=== PATIENT | male | born 1985 | race Caucasian/White ===

== ENCOUNTER 2017-12-25 08:12 | Emergency (ER) | payer BC, SELFPAY ==
[2017-12-25 08:14] VITALS: BP 153/86; PULSE 82; RESP 14; TEMP 35.7; BMI 37.8
--- NOTE | 2017-12-25 08:50 | ED.DCSUM_ITS ---
- ER Visit Summary Date of Service: 12/25/17 Chief Complaint: [Abscess] History of Present Illness: The patient is a 32 M [presents the emergency department complaint of an abscess to the neck. Patient states that he has had what he thinks is a sebaceous cyst to the right side of his neck for approximately for 5 years but has not been causing him too much trouble. A month ago or so patient developed swelling to the left side of his neck which became painful. Patient was seen and started on Keflex. Patient scheduled to see a surgeon and have the sebaceous cyst excised on the of the month. Patient noticed some drainage from the area this morning and they were told that if it started to drain that they would need to be evaluated immediately in emergency department. Patient denies any fevers.] Physical Examination: [HEENT-PERRLA, EOMI. Cranial nerves II through XII grossly intact. TMs clear. Mucous membranes moist. No adenopathy. Evaluation of the neck does reveal at the base of this skull a soft tissue fluctuant mass. Area slightly erythematous. Area tender to palpation. Do not appreciate an obvious drainage at this time. Cardiovascular-regular rate and rhythm without murmur or ectopy Lungs-clear to auscultation, chest wall stable without crepitus or subcu emphysema Abdomen-normoactive bowel sounds, soft, nontender, no rebound or rigidity, no peritoneal signs. Extremities-intact ?4, normal range of motion, normal pulses, atraumatic] Test Results: [None indicated] Emergency Department Course and Treatment: [She was offered incision and drainage which she agreed to. Area of the neck was sterilely draped and prepped. Wound was cleansed with Shur-Clens. Area was anesthetized with 1% lidocaine locally total of 2 cc. Using an 11 blade a 2 cm incision was made into the fluctuant portion of the suspected abscess. Large amount of free- flowing purulent debris was expressed. Using curved hemostats to undermine the soft tissues. Area was irrigated. Clean dressing was applied.] Treatment Plan: [Patient to continue with his antibiotics until they are finished. Patient to follow-up with his surgeon.] Disposition: [Discharged home in stable condition] Impression: [Soft tissue abscess to neck with incision and drainage] This note was generated with [employer] software. It may contain incorrect words, spelling, and punctuation that were not noted in review of the chart prior to signing ED Disposition - Plan for ED Patient: Chief Complaint: Abscess Referrals: Care Physician,No Primary [Primary Care Provider] -
--- NOTE | 2017-12-25 08:50 | ED.DEP ---
ED Disposition - Plan for ED Patient: Chief Complaint: Abscess Instructions: ED Abscess IandD Prescriptions: Hydrocodone Bitart/Apap 5-325 [[place] 5MG-325MG] 1 tab PO Q4H PRN PRN 2 Days #10 tab PRN Reason: Pain Referrals: Care Physician,No Primary [Primary Care Provider] - Additional Instructions: see your surgeon
[2017-12-25] MEDS: HYDROcodone Bitartrate/Apap 5/325 Tablet PO (08:56)
== END 2017-12-25 09:09 | disposition home or self-care (01) ==
LOC: ED 08:34
PROVIDERS: Emergency Provider Emergency Medicine
DX: L02.11 Cutaneous abscess of neck (principal); E11.9 Type 2 diabetes mellitus without complications; Z79.2 Long term (current) use of antibiotics; Z79.4 Long term (current) use of insulin
CPT/HCPCS: 10060; 99283

== ENCOUNTER 2020-12-18 16:11 | Emergency (ER) | payer SELFPAY ==
[2020-12-18 16:13] VITALS: BP 101/80; PULSE 102; RESP 16; TEMP 36.5; O2SAT 98; BMI 38.8
--- NOTE | 2020-12-18 16:44 | EDS_ITS ---
HPI HPI - GI History of Present Illness Chief Complaint: Abd Pain Informant: patient Abdominal Pain/Flank Pain Onset: Yesterday Context: Gradual Onset Timing: Continuous Quality: Aching and Cramping Location: Diffuse Current Severity: Severe Maximum Severity: Severe Worsened by: - (Vomiting) Relieved by: - (Dilaudid) Nausea/Vomiting/Emesis GI Symptom: Positive for Nausea and Vomiting Quality: Positive for Nonbilious; Negative for Blood streaks and Hematemesis Severity: Severe Diarrhea/Melena/Hematochezia GI Symptom: Positive for Diarrhea; Negative for Melena and Hematochezia Onset: Yesterday Stool Quality: Positive for Watery; Negative for Black, Maroon and BRB per rectum Severity: Severe Associated Symptoms Associated Symptoms: Negative for Dysuria, Frequency, Hematuria and Urgency Narrative Narrative: Patient states he is having abdominal pain, vomiting, diarrhea since yesterday. He states that nausea started a couple days ago, diarrhea then after that, then vomiting with abdominal pain. He denies any known fevers. He is an insulin-dependent diabetic. He states his blood sugars have been around 300 yesterday, and he has still been giving himself small amount of insulin to prevent himself from going into DKA. His girlfriend did a rapid Covid test at home prior to going to [facility] which is where he just came from after having a bunch of negative tests and he eloped after they gave him Dilaudid, which gave him hives and they told him there is nothing else we can do for you, according to the patient. He has not had the Covid vaccine and states and I do not want it. [facility] Medical History Type 1 diabetes mellitus Home Medications insulin lispro 100 unit/mL subcutaneous solution See Rx Instructions SC TID ml 12/31/17 [History Last Taken Unknown] insulin glargine [Lantus U-100 Insulin] 40 unit SUBCUT QHS 12/18/20 [History Last Taken Unknown] metoclopramide HCl 10 mg PO Q6H PRN #20 tab 12/18/20 [Rx Last Taken Unknown] Allergy/AdvReac Type Severity Reaction Status Date / Time cashew nut Allergy Anaphylaxis Verified 12/18/20 16:19 hydromorphone [From Dilaudid] Allergy Hives Verified 12/18/20 16:19 Family History (System 12/07/20 @ 11:05 by Evita Lopez) Unknown Diabetes Surgical History h/o removal of cyst from scalp H/O removal of neck cyst Social History Smoking Status: Never smoker second hand exposure: No alcohol intake: never substance use type: does not use ROS ROS ED Constitutional Constitutional ED: Reports body ache(s) and fatigue; Denies chills or fever(s) Eyes Eyes: Denies change in vision or diplopia ENT ENT ED: Denies rhinorrhea or sore throat Cardiovascular Cardiovascular: Denies chest pain or palpitations Respiratory/Chest Respiratory/Chest: Denies cough or dyspnea Gastrointestinal Gastrointestinal: Reports abdominal pain, diarrhea, nausea and vomiting Genitourinary Genitourinary ED: Denies dysuria or hematuria Musculoskeletal Musculoskeletal: Denies back pain or neck pain Integumentary Denies abscess or rash Neurologic Neurologic: Denies headache(s), paresthesias or weakness Psychiatric Psychiatric: Denies anxiety or suicidal thoughts EXAM Physical Exam Const Vital Signs: 12/18/20 16:13 12/18/20 19:51 Temperature 97.7 F L Temperature Source Temporal Pulse Rate 102 H 110 H Respiratory Rate 16 12 Blood Pressure 101/80 118/71 Blood Pressure Mean 87 86 Pulse Ox 98 97 Oxygen Delivery Method Room Air Room Air Positive well nourished and well developed General Appearance ED: well developed and NAD HEENT Reports moist mucous membranes normocephalic and atraumatic Eyes PERRL and EOMs intact bilaterally Neck full ROM and supple Resp normal respiratory effort and clear to auscultation bilaterally Cardio regular rate, regular rhythm and no murmurs GI non-distended GI Narrative: Diffusely tender, worse in the right side of the abdomen and epigastrium Auscultation: normoactive bowel sounds Palpation: soft Back/Spine no CVA tenderness General Back: other FROM Extremity normal to inspection General Extremety ED: Negative for edema, pulses abnormal or tenderness General Extremity: Negative for edema or pulses abnormal Neuro oriented x3, CN's II-XII intact bilaterally and no sensory deficits noted Sensorium / Orientation: awake and alert Motor Exam: strength 5/5 throughout Psych speech normal Mood & Affect: anxious Skin no rashes or lesions noted and no wounds MDM MDM MDM Narrative Medical decision making narrative: Patient was just at a different hospital and had a lot of tests including a CT. Therefore, I offered a repeat rapid Covid antigen test which he is declining, and ordered IV fluids and medications to try to help him feel better before repeating a lot of testing that is unnecessary to do, while awaiting test results to be faxed from the outside hospital. I was able to get some records, normal labs except for a white blood count of of 12.7 slight leftward shift, so they did a CT of the abdomen/pelvis, it was normal except for gastric distention. Troponin was within normal limits as well. Lipase was within normal limits. Here, I treated patient's rash with IV Benadryl which helped, in addition to IM dicyclomine, IV normal saline, and Reglan. On reevaluation he feels much better. He has prescriptions for Zofran and Bentyl already that he has not been able to fill yet that were written by the prior ER, I will also add a prescription for Reglan which seemed to really help. Just in case. He is comfortable with that plan and will follow up with his doctor. Discharge Plan Triage Chief Complaint: Abd Pain ED Provider: Joni Islas Dx/Rx/DC Orders Clinical Impression: Abdominal pain, diffuse, Gastroenteritis Instructions: Abdominal Pain Prescriptions: New metoclopramide HCl [metoclopramide HCl] 10 MG tablet 10 mg PO Q6H PRN (Reason: nausea and vomiting) Qty: 20 RF: 0 No Action insulin lispro [Humalog U-100 Insulin] 100 unit/mL solution See Rx Instructions SC TID RF: 0 Lantus U-100 Insulin 100 unit/mL solution 40 unit SUBCUT QHS RF: 0 Primary Care Provider: Dalia Barraza Referrals: Dalia Barraza MD [Primary Care Provider] - 3-5 Days if not improving Disposition Disposition: Home, Self Care
[2020-12-18] MEDS: 0.9% Normal Saline 1,000 ML 999 ML IV (16:55)
[2020-12-18] MEDS: Metoclopramide 10 MG/2 ML Vial IV (16:56)
[2020-12-18] MEDS: DiphenhydrAMINE 50 MG/ML Syringe 25 MG IV (16:58)
[2020-12-18] MEDS: Dicyclomine 20 MG/2 ML Vial IM (17:00)
[2020-12-18 19:51] VITALS: BP 118/71; PULSE 110; RESP 12; O2SAT 97
== END 2020-12-18 20:58 | disposition home or self-care (01) ==
PROVIDERS: Emergency Provider Emergency Medicine; PCP Internal Medicine Infectious Disease
DX: K52.9 Noninfective gastroenteritis and colitis, unspecified (principal); R21 Rash and other nonspecific skin eruption; E10.9 Type 1 diabetes mellitus without complications; Z79.4 Long term (current) use of insulin
CPT/HCPCS: 96361; 96372; 96374; 96375; 99285; A4216

== ENCOUNTER 2022-01-24 07:41 | Emergency (ER) | payer BC, SELFPAY ==
[2022-01-24 07:43] VITALS: BP 133/89; PULSE 72; RESP 14; TEMP 37.2; O2SAT 97; BMI 34.3
[2022-01-24 07:54] VITALS: TEMP 36.8
--- NOTE | 2022-01-24 07:57 | RAD_ITS ---
STUDY: X-RAY CHEST REASON FOR EXAM: Male, 36 years old. Body aches, cough and chills. TECHNIQUE: Single AP portable view of the chest. COMPARISON: None. FINDINGS: The lungs are clear and expanded. There is no demonstrated pleural abnormality. Normal size heart. Normal mediastinum and miriam. Normal visualized pulmonary arteries. Normal visualized aortic arch and descending thoracic aorta. Normal visualized thoracic spine. Normal visualized ribs, clavicles, and shoulders. There is no demonstrated abnormality of the visualized soft tissue structures of the upper abdomen. RAD/Chest 1 View (Portable) IMPRESSION: Normal x-ray examination of the chest. Electronically Signed: Alex Ann MD at 8:57 EDT ,
--- NOTE | 2022-01-24 07:57 | EDS_ITS ---
HPI History of Present Illness Chief Complaint: Hyperglycemia Informant: patient Onset/Context/Timing Onset: Days Context: Gradual Onset Narrative Narrative: Patient presents secondary to body aches and nausea along with elevated blood sugars. He states has had generalized body aches with nausea but no vomiting over the last 5 days. He had a temperature of around 100. Has had a mild cough along with headache. He states his blood sugars have been around 500 the last 2 days. He normally runs 150-200. He took extra insulin last night but his blood sugar remained in the 500s. [facility] Medical History Left knee pain Patellofemoral disorder of left knee Type 1 diabetes mellitus Home Medications insulin lispro 100 unit/mL subcutaneous solution (Humalog U-100 Insulin) See Rx Instructions subcut TID e10.9 12/31/17 [History Last Taken Unknown] insulin glargine 100 unit/mL subcutaneous solution (Lantus U-100 Insulin) 35 unit subcut QHS 12/18/20 [History Last Taken Unknown] Allergy/AdvReac Type Severity Reaction Status Date / Time cashew nut Allergy Anaphylaxis Verified 01/24/22 07:42 hydromorphone [From Dilaudid] AdvReac dizziness Verified 01/24/22 07:42 Family History Unknown Diabetes Surgical History h/o removal of cyst from scalp H/O removal of neck cyst Social History Smoking Status: Never smoker second hand exposure: No alcohol intake: never substance use type: does not use ROS ROS ED Constitutional Constitutional ED: Denies chills or fever(s) Eyes Eyes: Denies change in vision or discharge from eye(s) ENT ENT ED: Denies discharge from eye(s), rhinorrhea or sore throat Cardiovascular Cardiovascular: Denies chest pain or palpitations Respiratory/Chest Respiratory/Chest: Reports cough; Denies dyspnea Gastrointestinal Gastrointestinal: Reports abdominal pain and nausea; Denies diarrhea or vomiting Genitourinary Genitourinary ED: Reports urinary frequency; Denies dysuria Musculoskeletal Musculoskeletal: Reports myalgias; Denies back pain or extremity pain Integumentary Denies Abrasions or rash Neurologic Neurologic: Reports headache(s); Denies weakness Psychiatric Psychiatric: Denies anxiety or depression Allergic/Immunologic Allergic/Immunologic ED: Denies lip swelling or urticaria EXAM Physical Exam Const Vital Signs: 01/24/22 07:43 01/24/22 07:54 01/24/22 08:23 Temperature 99 F 98.2 F Temperature Source Temporal Oral Pulse Rate 72 Respiratory Rate 14 Respiratory Effort Normal Non-Labored Respiratory Pattern Normal Blood Pressure 133/89 H Blood Pressure Mean 103 Pulse Ox 97 Oxygen Delivery Method Room Air Positive well nourished and well developed General Appearance ED: well developed HEENT Reports normocephalic and head/scalp atraumatic Eyes PERRL and EOMs intact bilaterally Neck supple Chest Wall inspection of chest normal and palpation of chest normal Resp normal respiratory effort and clear to auscultation bilaterally Cardio regular rate and regular rhythm GI GI Narrative: Mild epigastric tenderness location. No guarding or rebound. Hypoactive but present bowel sounds. Palpation: soft Extremity normal to inspection Neuro oriented x3 and no sensory deficits noted Sensorium / Orientation: alert Motor Exam: strength 5/5 throughout Psych mental status grossly normal Skin no rashes or lesions noted MDM MDM MDM Narrative Medical decision making narrative: Patient given IV fluids. Lab work obtained along with chest x-ray. COVID and influenza swab ordered. Lab Data Attestation: I reviewed the patient's lab results. Labs: Laboratory Results - last 24 hr 01/24/22 01/24/22 01/24/22 08:15 08:15 08:21 WBC 3.2 L RBC 5.73 Hgb 15.6 Hct 47.8 MCV 83.4 MCH 27.2 MCHC 32.6 RDW Std Deviation 39.3 RDW Coeff of Foreign 13.0 Plt Count 172 MPV 10.6 Immature Gran % (Auto) 0.300 Neut % (Auto) 48.7 Lymph % (Auto) 36.1 [place] % (Auto) 13.0 H Eos % (Auto) 1.6 Baso % (Auto) 0.3 Absolute Neuts (auto) 1.5 L Absolute Lymphs (auto) 1.14 Nucleated RBC % 0 Sodium 135 L Potassium 4.6 Chloride 101 Carbon Dioxide 27.0 Anion Gap 7 BUN 15 Creatinine 1.03 Estim Creat Clear Calc 105.60 Est GFR (MDRD) Af Amer 105 Est GFR (MDRD) Non-Af 86 BUN/Creatinine Ratio 14.6 Glucose 258 H Calcium 8.7 Total Bilirubin 0.30 Direct Bilirubin 0.10 AST 36 ALT 25 Alkaline Phosphatase 83 Total Protein 7.0 Albumin 3.4 Globulin 3.6 Lipase 84 POC Glucose 261 H Radiography Chest X-Ray - ED: 1 View, Read by ED Physician, Normal, Heart, Lungs and Mediastinum Diagnostic Testing: Clinical Impression(s) from Imaging Studies Chest X-Ray 01/24/22 07:57 IMPRESSION: Normal x-ray examination of the chest. Electronically Signed: Alex Ann MD at 8:57 EDT , Treatment and Re-Evaluation Narrative: Chest x-ray per my interpretation reveals no focal infiltrate. Radiology interpretation is reviewed. CBC reveals white count low at 3.2. Chemistry studies unremarkable other than a glucose of 258. LFTs and lipase normal. COVID test is positive. On repeat evaluation patient resting comfortably. He has received a full liter IV fluid and is on his second bag at this time. Test results are discussed with him. His blood sugar is now in the 250s where he had been running in the 500s at home. I encouraged him to have his monitor checked to ensure it is reading accurately. He is already on day 5 of COVID symptoms and will continue supportive care. He will contact his primary care physician for changes to his insulin dosing as needed. Discharge Plan Triage Chief Complaint: Hyperglycemia ED Provider: Marlena Lawson Dx/Rx/DC Orders Clinical Impression: COVID-19, Hyperglycemia Instructions: Coronavirus Disease 2019 (COVID-19): Overview, Coronavirus Disease 2019 (COVID-19): Caring for Yourself or Others, ED Diabetic Hyperglycemia Prescriptions: No Action insulin lispro [Humalog U-100 Insulin] 100 unit/mL solution See Rx Instructions SC TID Label Comments: 25 units with each meal plus sliding scale up to 100 units qd SC TID Rx Instructions: 20 units with each meal plus sliding scale up to 100 units qd SC TID R insulin glargine [Lantus U-100 Insulin] 100 unit/mL solution 35 unit SUBCUT QHS Label Comments: INJECT 40 UNITS SUBCUTANEOUSLY AT BEDTIME Rx Instructions: N Primary Care Provider: Dalia Barraza Referrals: Dalia Barraza MD [Primary Care Provider] - 1 Week Disposition Disposition: Home, Self Care
[2022-01-24] MEDS: 0.9% Normal Saline 1,000 ML 1000 ML IV (08:13)
[2022-01-24 08:31] LABS: Absolute Lymphocyte Count 1.14 X10^3/uL (0.83-4.51); Absolute Neutrophil Count 1.5 X10^3/uL (2.0-7.7); Basophil# 0.01 X10^3/uL; Basophil% 0.3 % (0-1); Eosinophil# 0.05 X10^3/uL; Eosinophils% 1.6 % (0-5); Hematocrit 47.8 % (40-54); Hemoglobin 15.6 g/dL (13.0-16.5); Lymphocyte # 1.14 X10^3/ul (0.83-4.51); Lymphocyte % 36.1 % (19-41); Mean Corp Hgb Conc 32.6 g/dL (32-36); Mean Corpuscular Hgb 27.2 pg (27.0-32.0); Mean Corpuscular Volume 83.4 fL (80-94); Mean Platelet Vol. 10.6 fl (6.2-12.0); Monocyte# 0.41 X10^3/uL; NRBC Flagged by Analyzer 0 % (0-5); Neutrophil # 1.54 X10^3/uL (2.7-7.7); Neutrophil % 48.7 % (47-70); Platelet Count 172 K/mm3 (150-450); RBC Distribution Width SD 39.3 fl (35.1-43.9); Red Blood Count 5.73 M/mm3 (4.6-6.2); White Blood Count 3.2 K/mm3 (4.4-11.0)
[2022-01-24 08:40] LABS: Bedside Glucose 261 mg/dL (74-106)
[2022-01-24 08:46] LABS: AST(SGOT) 36 U/L (15-37); Alanine Aminotransfer ALT/SGPT 25 U/L (16-61); Albumin, Serum 3.4 g/dL (3.2-5.0); Alkaline Phosphatase 83 U/L (45-117); Anion Gap 7 (5-15); BUN 15 mg/dL (7-18); BUN/Creat Ratio 14.6 RATIO (10-20); Calcium,Total 8.7 mg/dL (8.5-10.1); Chloride 101 mmol/L (98-107); Creatinine, Serum 1.03 mg/dL (0.70-1.30); EST Glomerular Filtration Rate 86 mL/min (>60); Est Glom Filt Rate - Afr Amer 105 mL/min (>60); Globulin 3.6 g/dL (2.2-4.2); Glucose 258 mg/dL (74-106); Lipase 84 U/L (73-393); Potassium 4.6 mmol/L (3.5-5.1); Sodium Level 135 mmol/L (136-145)
[2022-01-24] MEDS: 0.9% Normal Saline 1,000 ML 250 ML IV (08:49)
[2022-01-24 09:13] VITALS: PULSE 63; RESP 18; O2SAT 99
== END 2022-01-24 09:23 | disposition home or self-care (01) ==
PROVIDERS: Emergency Provider Emergency Medicine; PCP Internal Medicine Infectious Disease; Visit Provider Emergency Medicine
DX: U07.1 COVID-19 (principal); E10.65 Type 1 diabetes mellitus with hyperglycemia; Z79.4 Long term (current) use of insulin
CPT/HCPCS: 71045; 80048; 80076; 82009; 82962; 83690; 85025; 87428; 96360; 99282; J7030; A4216

== ENCOUNTER → 2023-11-14 | Outpatient (CLI) | payer BC, SELFPAY | END | disposition home or self-care (01) | PROVIDERS: PCP Internal Medicine Infectious Disease; Referring Provider Physician Assistant; Visit Provider Physician Assistant | DX: A37.90 Whooping cough, unspecified species without pneumonia (principal) | CPT/HCPCS: 87798 ==